=== PATIENT | male | born 1935 ===

== ENCOUNTER 2018-07-05 11:38 | Day surgery (SDC) | payer MEDICARE ==
[~2018-07-05 11:38] MED LIST: Acetaminophen TAB* 325 MG PO PRN; Buffered Lidocaine 0.9% SYRIN* 5 ML/SYR SYRINGE INTRADERM ONE
[2018-07-05] MEDS ORDERED: Midazolam* 1 MG/ML 2 ML VIAL (2 MG) ONE (13:02)
[2018-07-05] MEDS ORDERED: fentaNYL* 50 MCG/ML 2 ML VIAL (100 MCG VIAL) ONE (13:02)
[2018-07-05] MEDS ORDERED: Tropicamide 1% OPTH.SOL* BTL ONE (13:32)
[2018-07-05] MEDS ORDERED: Lidocaine 1%* 5 ML VIAL ONE (13:32)
[2018-07-05] MEDS ORDERED: Neomycin/Polymy/Dex OPHTH.OIN* 3.5 GM ONE (13:32)
[2018-07-05] MEDS ORDERED: Phenylephrine 2.5% OPTH.SOL* 2 ML BTL ONE (13:32)
[2018-07-05] MEDS ORDERED: Cyclopentolate 1% OPTH.SOL* 2 ML BTL ONE (13:32)
[2018-07-05] MEDS ORDERED: Ketorolac 0.5% OPHTH (NF) 0.5 % 5 ML BTL ONE (13:33)
[2018-07-05] MEDS ORDERED: Tetracaine 0.5% OPTH.SOL 4 ML* 1 DROP BTL ONE (13:33)
[2018-07-05] MEDS ORDERED: Lidocain 1% EPI 1:100,000 * 30 ML MDV ONE (13:44)
[2018-07-05 14:17] VITALS: BP 119/74
[2018-07-05] MEDS ORDERED: Phenylephr/Ketorolac 1%/0.3% OPH DROP BTL ONE (14:43)
--- NOTE | 2018-07-06 03:10 | OP ---
DATE OF OPERATION: 07/05/18 [facility] DATE OF : 37 SURGEON: Dr. Malachi Greene. COPYING MACHINE REPAIRER: None. ANESTHESIA: Topical with intravenous sedation. PRE-OP DIAGNOSIS: Cataract, right eye. POST-OP DIAGNOSIS: Cataract, right eye. OPERATIVE PROCEDURE: Phacoemulsification and cataract extraction with posterior chamber intraocular lens implant, right eye. COMPLICATIONS: None. BLOOD LOSS: None. DESCRIPTION OF PROCEDURE: The patient was brought to the operating room and received a small amount of intravenous sedation. A drop of Tetracaine was placed in the patient's right eye. The patient was prepped and draped in the usual sterile fashion for ophthalmic surgery and attention was directed to the right eye where a speculum was placed. A paracentesis was created at the 11 o' clock position and 0.1 cc of 1 percent preservative-free Lidocaine was injected into the anterior chamber followed by DisCoVisc. The eye was digitally stabilized while a 2.75 mm keratome was used to create a triplanar clear corneal incision at the 9 o'clock position. A continuous curvilinear capsulorrhexis was created with a cystotome and Utrata forceps. BSS on a cannula was used to hydrodissect the lens from the capsule. Phacoemulsification was performed in a vrweme-ell-pvrchzb technique to create four fragments which were removed. Residual cortical material was removed with irrigation and aspiration. DisCoVisc was used to inflate the capsular bag and an AUOOTO 19.0 Diopter lens was folded and inserted into the capsular bag. DisCoVisc was removed using irrigation and aspiration. BSS on a cannula was used to hydrate the corneal stroma and seal the wound. At the end of the case the pupil was round and the lens was centered. The eye was of normal pressure and the wound was water tight. The speculum was removed and topical Maxitrol ointment was placed on the surface of the eye. The eye was closed, patched and shielded and the patient was sent to the recovery room in stable condition with post operative instructions and follow-up appointment given. [id number] #: [id number] MTDD
== END 2018-07-05 14:29 | disposition home or self-care (01) ==
LOC: OREAST 11:38
PROVIDERS: ATTEND Ophthalmology
DX: H25.11 Age-related nuclear cataract, right eye (principal); I10 Essential (primary) hypertension; Z87.891 Personal history of nicotine dependence; E11.9 Type 2 diabetes mellitus without complications; I69.954 Hemiplegia and hemiparesis following unspecified cerebrovascular disease affecting left non-dominant side; I71.4 Abdominal aortic aneurysm, without rupture
CPT/HCPCS: A9270-GY; C9447; J2250; J3010; V2632

== ENCOUNTER 2020-09-26 16:10 | Inpatient (IN) ==
[2020-09-26] MEDS ORDERED: Heparin - STEMI 5,000 UNITS/ML 1 ml VIAL IV ONE (16:22)
[2020-09-26] MEDS ORDERED: Heparin 5000 UNITS/ML 1 mL VIAL ONE (16:25)
[2020-09-26 16:37] LABS: ABS Eosinophils 0.1 10^3/ul (0-0.6); ABS Lymphocytes 1.3 10^3/ul (1.0-4.8); ABS Monocytes 0.9 10^3/ul (0-0.8); ABS Neutrophils 9.4 10^3/ul (1.5-7.7); Eosinophil % 0.8 %; Hematocrit 48 % (42-52); Hemoglobin 16.4 g/dL (14.0-18.0); Lymphocyte % 11.1 %; Mean Corpuscular HGB Conc 35 g/dL (31-36); Mean Corpuscular Hemoglobin 30 pg (27-31); Mean Corpuscular Volume 87 fL (80-94); Mean Platelet Volume 7.1 fL (7.4-10.4); Nucleated Red Blood Cells % 0.1; Platelet Count 251 10^3/uL (150-450); Red Blood Count 5.46 10^6 /uL (4.18-5.48); Red Cell Distribution Width 14 % (10-15); White Blood Count 11.7 10^3/uL (3.5-10.8)
[2020-09-26 16:47] LABS: Activated Partial Thrombo Time 28.7 seconds (26.0-38.0); INR 1.08 (0.82-1.09)
[2020-09-26 16:50] LABS: Albumin 4.5 g/dL (3.2-5.2); Anion Gap 12 mmol/L (2-11); CO2 Carbon Dioxide 24 mmol/L (22-32); Calcium 9.6 mg/dL (8.6-10.3); Chloride 104 mmol/L (101-111); Potassium 4.4 mmol/L (3.5-5.0); Sodium 140 mmol/L (135-145)
[2020-09-26 16:53] LABS: Troponin I 0.11 ng/mL (<0.03)
[2020-09-26 16:54] LABS: CKMB ng/mL 2.7 ng/mL (0.6-6.3)
[2020-09-26 16:56] LABS: ALT 28 U/L (7-52); AST 24 U/L (13-39); Albumin/Globulin Ratio 1.7 (1-3); Alkaline Phosphatase 87 U/L (34-104); BUN/Creatinine Ratio 19.1 (8-20); Blood Urea Nitrogen 22 mg/dL (6-24); Creatine Kinase 100 U/L (10-223); EGFR African American 73.3 (>60); EGFR Non-African American 60.6 (>60); Globulin 2.6 g/dL (2-4); Glucose 161 mg/dL (70-100); LDL Cholesterol Direct 98 mg/dL; Total Protein 7.1 g/dL (6.4-8.9)
[2020-09-26] MEDS ORDERED: Iohexol 350 (CONTRAST) 200 ML MDV IV ONE (17:06)
[2020-09-27 00:40] LABS: Troponin I 70.81 ng/mL (<0.03)
[2020-09-27 05:23] LABS: ABS Eosinophils 0.1 10^3/ul (0-0.6); ABS Lymphocytes 0.9 10^3/ul (1.0-4.8); ABS Monocytes 1.1 10^3/ul (0-0.8); ABS Neutrophils 9.8 10^3/ul (1.5-7.7); Eosinophil % 0.7 %; Hematocrit 46 % (42-52); Hemoglobin 15.2 g/dL (14.0-18.0); Lymphocyte % 7.7 %; Mean Corpuscular HGB Conc 33 g/dL (31-36); Mean Corpuscular Hemoglobin 29 pg (27-31); Mean Corpuscular Volume 88 fL (80-94); Mean Platelet Volume 7.2 fL (7.4-10.4); Platelet Count 222 10^3/uL (150-450); Red Blood Count 5.18 10^6 /uL (4.18-5.48); Red Cell Distribution Width 14 % (10-15)
[2020-09-27 05:38] LABS: ALT 41 U/L (7-52); Albumin 3.9 g/dL (3.2-5.2); Albumin/Globulin Ratio 1.6 (1-3); Alkaline Phosphatase 81 U/L (34-104); BUN/Creatinine Ratio 19.6 (8-20); Blood Urea Nitrogen 18 mg/dL (6-24); CO2 Carbon Dioxide 24 mmol/L (22-32); Chloride 105 mmol/L (101-111); Cholesterol 136 mg/dL; EGFR African American 94.8 (>60); EGFR Non-African American 78.4 (>60); Globulin 2.4 g/dL (2-4); Glucose 152 mg/dL (70-100); LDL Cholesterol 84 mg/dL; Sodium 136 mmol/L (135-145); Total Protein 6.3 g/dL (6.4-8.9); Triglycerides 75 mg/dL
[2020-09-27 06:01] LABS: Anion Gap 7 mmol/L (2-11)
[2020-09-27 06:37] LABS: Potassium Redraw 4.6 mmol/L (3.5-5.0)
[2020-09-27 06:55] LABS: Troponin I 42.07 ng/mL (<0.03)
[2020-09-27] MEDS ORDERED: Perflutren Lipid Microsphere 3 ML VIAL ONE (08:08)
[2020-09-28 11:16] VITALS: BP 109/60
== END 2020-09-28 16:05 | disposition home or self-care (01) | DRG 247 ==
LOC: ED 16:10 → CHICATH 16:30 → ICU 17:45 → MEDTELE 09-27 09:34
PROVIDERS: ADMIT Internal Medicine Cardiovascular Disease; ATTEND Internal Medicine